=== PATIENT | female | born 1985 ===

== ENCOUNTER 2021-04-28 21:09 | Outpatient (CLI) | payer SELFPAY ==
[~2021-04-28] VITALS: Ht 157.5 cm; Wt 62.0 kg
[2021-04-28 22:51] VITALS: BP 122/77
== END 2021-04-28 23:47 | disposition home or self-care (01) ==
LOC: LDOP 21:09
PROVIDERS: ATTEND Student in an Organized Health Care Education/Training Program
DX: O09.93 Supervision of high risk pregnancy, unspecified, third trimester (principal); O62.9 Abnormality of forces of labor, unspecified; Z3A.37 37 weeks gestation of pregnancy
CPT/HCPCS: 59025

== ENCOUNTER 2021-05-02 15:17 | Outpatient (CLI) | payer OTHER ==
[~2021-05-02] VITALS: Ht 157.5 cm; Wt 63.6 kg
[2021-05-02 15:24] VITALS: BP 125/79
== END 2021-05-02 16:39 | disposition home or self-care (01) ==
LOC: LDOP 15:17
PROVIDERS: ATTEND Student in an Organized Health Care Education/Training Program
DX: O13.3 Gestational [pregnancy-induced] hypertension without significant proteinuria, third trimester (principal); Z3A.38 38 weeks gestation of pregnancy

== ENCOUNTER 2021-05-03 05:29 | Inpatient (IN) | payer OTHER ==
[~2021-05-03] VITALS: Ht 157.5 cm; Wt 63.6 kg
[2021-05-04 07:00] VITALS: BP 118/77
== END 2021-05-04 18:40 | disposition home or self-care (01) | DRG 807 ==
LOC: LDOP 05:29 → LDIP 06:03 → 2NW 17:47
PROVIDERS: ADMIT Student in an Organized Health Care Education/Training Program; ATTEND Student in an Organized Health Care Education/Training Program
PROC: 10E0XZZ Delivery of Products of Conception, External Approach (ICD-10-PCS; principal; 2021-05-03)
PROC: 0UQMXZZ Repair Vulva, External Approach (ICD-10-PCS; 2021-05-03)
DX: O99.824 Streptococcus B carrier state complicating childbirth (principal); Z37.0 Single live birth; O99.284 Endocrine, nutritional and metabolic diseases complicating childbirth; E55.9 Vitamin D deficiency, unspecified; O76 Abnormality in fetal heart rate and rhythm complicating labor and delivery; Z3A.38 38 weeks gestation of pregnancy; O71.82 Other specified trauma to perineum and vulva